=== PATIENT | female | born 1980 | race Caucasian/White ===

== ENCOUNTER 2019-08-23 18:12 | Emergency (ER) | payer SELFPAY ==
[2019-08-23] MEDS ORDERED: ACETAMINOPHEN 500 MG TAB ONE (19:42)
[2019-08-23] MEDS ORDERED: ONDANSETRON 4 MG (ODT) TAB ONE (19:42)
[2019-08-23 19:47] LABS: Urine Blood TRACE (NEG); Urine Glucose NEGATIVE (NEG); Urine Protein NEGATIVE (NEG); Urine Specific Gravity >1.030 (1.005-1.030); Urine pH 5.5 (5.0-7.0)
[2019-08-23 20:00] LABS: Barbiturates NEGATIVE (NEGATIVE); Benzodiazepines NEGATIVE (NEGATIVE); Cocaine NEGATIVE (NEGATIVE); METHAMPHETAM NEGATIVE (NEGATIVE); Methadone NEGATIVE (NEGATIVE); Opiates NEGATIVE (NEGATIVE); Phencyclidine NEGATIVE (NEGATIVE); THC Cannibis POSITIVE (NEGATIVE)
--- NOTE | 2019-08-23 20:03 | RAD REPORT ---
EXAM DESCRIPTION: RAD - Hip Right 2 View - 08/23/2019 7:56 pm CLINICAL HISTORY: Trauma Fall, right hip pain COMPARISON: No comparisons FINDINGS: No acute fracture or dislocation identified.
--- NOTE | 2019-08-23 20:08 | RAD REPORT ---
EXAM DESCRIPTION: RAD - Shoulder Right 2 View - 08/23/2019 7:56 pm CLINICAL HISTORY: trauma Fall, trauma, pain COMPARISON: No comparisons FINDINGS: No acute fracture or dislocation seen.
--- NOTE | 2019-08-23 20:08 | RAD REPORT ---
EXAM DESCRIPTION: CT - [id number] - 08/23/2019 7:55 pm CLINICAL HISTORY: Trauma, head and neck injury. Trauma COMPARISON: No comparisons TECHNIQUE: Axial 5 mm thick images of the head were obtained. Axial 2 mm thick images of the cervical spine were obtained with sagittal and coronal reconstruction images generated and reviewed. All CT scans are performed using dose optimization technique as appropriate and may include automated exposure control or mA/KV adjustment according to patient size. FINDINGS: CT HEAD WITHOUT CONTRAST: No acute hemorrhage, hydrocephalus or extra-axial collection is identified.No areas of brain edema or midline shift. The paranasal sinuses and mastoids are clear.The calvarium is intact. CT CERVICAL SPINE WITHOUT CONTRAST: No fracture or subluxation.No prevertebral soft tissues swelling is identified. IMPRESSION: No acute intracranial or cervical spine findings.
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
--- NOTE | 2019-08-23 20:41 | EDPHYS ---
Physician Documentation [facility] Name: Luis Adam Age: 39 yrs Sex: Female : 1980 Arrival Date: 08/23/2019 Time: 18:14 Bed 17 Private MD: ED Physician Tony Kirkland HPI: 08/22 19:40 This 39 yrs old Female presents to ER via Wheelchair with complaints of Fall mh7 Injury, Dizziness. 19:40 Details of fall: The patient fell from an upright position, while walking. Onset: The mh7 symptoms/episode began/occurred today. Associated injuries: The patient sustained injury to the head, contusion, pain, tenderness, neck injury, pain, tenderness, right shoulder, painful injury, right hip, painful injury. Severity of symptoms: At their worst the symptoms were moderate, earlier today, in the emergency department the symptoms have improved, moderately. Patient states that she slipped and fell on a wet floor at a store this afternoon. She is unsure if she had LOC but remembers events surrounding fall. She denies any symptoms prior to falling including headache, chest pain, SOB, abdominal pain, nausea, vomiting, dizziness, or weakness.. 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 - Social history:: Smoking status: Patient denies any tobacco usage or history of. Patient uses street drugs, marijuana, Patient/guardian denies using alcohol, tobacco products. ROS: 19:40 Constitutional: Negative for fever, chills, and weight loss, Eyes: Negative for injury, mh7 pain, redness, and discharge, ENT: Negative for injury, pain, and discharge, Cardiovascular: Negative for chest pain, palpitations, and edema, Respiratory: Negative for shortness of breath, cough, wheezing, and pleuritic chest pain, Abdomen/GI: Negative for abdominal pain, nausea, vomiting, diarrhea, and constipation, Back: Negative for injury and pain, : Negative for injury, bleeding, discharge, and swelling, Skin: Negative for injury, rash, and discoloration, Psych: Negative for depression, anxiety, suicide ideation, homicidal ideation, and hallucinations, Allergy/Immunology: Negative for hives, rash, and allergies, Endocrine: Negative for neck swelling, polydipsia, polyuria, polyphagia, and marked weight changes, Hematologic/Lymphatic: Negative for swollen nodes, abnormal bleeding, and unusual bruising. Exam: 19:40 Constitutional: This is a well developed, well nourished patient who is awake, alert, mh7 and in no acute distress. 19:40 Eyes: Pupils equal round and reactive to light, extra-ocular motions intact. Lids and lashes normal. Conjunctiva and sclera are non-icteric and not injected. Cornea within normal limits. Periorbital areas with no swelling, redness, or edema. ENT: Nares patent. No nasal discharge, no septal abnormalities noted. Tympanic membranes are normal and external auditory canals are clear. Oropharynx with no redness, swelling, or masses, exudates, or evidence of obstruction, uvula midline. Mucous membranes moist. 19:40 Chest/axilla: Normal chest wall appearance and motion. Nontender with no deformity. No lesions are appreciated. Cardiovascular: Regular rate and rhythm with a normal S1 and S2. No gallops, murmurs, or rubs. Normal PMI, no JVD. No pulse deficits. Respiratory: Lungs have equal breath sounds bilaterally, clear to auscultation and percussion. No rales, rhonchi or wheezes noted. No increased work of breathing, no retractions or nasal flaring. Abdomen/GI: Soft, non-tender, with normal bowel sounds. No distension or tympany. No guarding or rebound. No evidence of tenderness throughout. Back: No spinal tenderness. No costovertebral tenderness. Full range of motion. Skin: Warm, dry with normal turgor. Normal color with no rashes, no lesions, and no evidence of cellulitis. 19:40 Neuro: Awake and alert, GCS 15, oriented to person, place, time, and situation. Cranial nerves II-XII grossly intact. Motor strength 5/5 in all extremities. Sensory grossly intact. Cerebellar exam normal. Normal gait. Psych: Awake, alert, with orientation to person, place and time. Behavior, mood, and affect are within normal limits. 19:40 Head/face: Exam is negative for abrasion(s), uriarte signs, deformity, ecchymosis, erythema, laceration(s), raccoon eyes, Noted is tenderness, that is moderate, of the right temporal area. 19:40 Neck: External neck: tenderness, that is mild, of the left mid cervical area and left trapezius, C-spine: Thyroid: appears normal, Trachea: is midline with no obvious abnormalities, ROM/movement: is normal, Lymph nodes: no appreciated lymphadenopathy. 19:40 Musculoskeletal/extremity: Extremities: noted in the right shoulder: pain, tenderness, noted in the right hip: pain, tenderness, ROM: intact in all extremities, Circulation is intact in all extremities. Sensation intact. Compartment Syndrome exam of affected extremity: is normal. no numbness, no tingling, no sensation deficit, no palor, no weak pulses, Joints: the right shoulder and right hip displays tenderness, Weight bearing: able to fully bear weight, without difficulty, Tendon exam: specific tendon testing normal through active and passive range of motion Vital Signs: 18:24 BP 137 / 79; Pulse 72; Resp 18; Temp 98.4; Pulse Ox 99% ; Pain 9/10; ll1 20:00 BP 116 / 70; Pulse 71; Resp 18; Pulse Ox 97% on R/A; wh 21:00 BP 102 / 52; Pulse 60; Resp 18; Pulse Ox 96% on R/A; wh MDM: 19:15 Patient medically screened. [facility] 20:36 Differential diagnosis: abrasion, closed head injury, contusion, fracture. Data [facility] reviewed: vital signs, nurses notes, lab test result(s), urinalysis, urine drug screen, UPT: radiologic studies, CT scan, plain films. Data interpreted: Pulse oximetry: on room air is 99 %. Interpretation: normal. Counseling: I had a detailed discussion with the patient and/or guardian regarding: the historical points, exam findings, and any diagnostic results supporting the discharge/admit diagnosis, the presence of at least one elevated blood pressure reading (>120/80) during this emergency department visit, lab results, radiology results, the need for outpatient follow up, to return to the emergency department if symptoms worsen or persist or if there are any questions or concerns that arise at home. Response to treatment: the patient's symptoms have markedly improved after treatment. 08/22 19:16 Order name: UDS; Complete Time: 20:31 [facility] 08/22 19:39 Order name: Urine Dipstick--Ancillary (enter results); Complete Time: 20:31 [facility] 08/22 19:20 Order name: CT Head C Spine; Complete Time: 20:31 7 08/22 19:20 Order name: Shoulder Right (2 View) XRAY; Complete Time: 20:31 7 08/22 19:20 Order name: Hip Right 2 View XRAY; Complete Time: 20:31 [facility] 08/22 19:39 Order name: Urine --Ancillary (enter results); Complete Time: 20:31 [facility] 08/22 19:16 Order name: Urine Test (obtain specimen); Complete Time: 19:37 [facility] 08/22 19:20 Order name: Pelvis XRAY; Complete Time: 20:31 mh7 Administered Medications: 19:37 Drug: Ondansetron (Zofran) 4 mg Route: PO; 21:17 Follow up: Response: No adverse reaction; Nausea is decreased 19:37 Drug: Tylenol 1000 mg Route: PO; 21:17 Follow up: Response: No adverse reaction; Pain is decreased Disposition: 08/23/19 20:40 Discharged to Home. Impression: Fall-Mechanical, Head Contusion, Right Shoulder Contusion, Right Hip Contusion. - Condition is Stable. - Discharge Instructions: Contusion, [id number], Head Injury, Adult, [id number]. - Prescriptions for Zofran ODT 4 mg Oral tablet,disintegrating - place 1 tablet by TRANSLINGUAL route every 8 hours; 6 tablet. - Medication Reconciliation Form, Thank You Letter, Antibiotic Education, Prescription Opioid Use form. - Follow up: Private Physician; When: 1 - 2 days; Reason: Worsening of condition, Recheck today's complaints, Re-evaluation by your physician. Follow up: Jim Yanez MD; When: 1 - 2 days; Reason: Worsening of condition, Recheck today's complaints. - Problem is new. - Symptoms have improved. Signatures: Dispatcher [employer] EDMS Jarad Alonzo Lynsay, RN RN ll1 Tony Kirkland MD MD 7 Corrections: (The following items were deleted from the chart) 20:41 20:40 08/23/2019 20:40 Discharged to Home. Impression: Fall-Mechanical; Head Contusion; mh7 Right Shoulder Contusion; Right Hip Contusion. Condition is Stable. Forms are Medication Reconciliation Form, Thank You Letter, Antibiotic Education, Prescription Opioid Use. Follow up: Private Physician; When: 1 - 2 days; Reason: Worsening of condition, Recheck today's complaints, Re-evaluation by your physician. Problem is new. Symptoms have improved. mh7 21:17 20:41 08/23/2019 20:40 Discharged to Home. Impression: Fall-Mechanical; Head Contusion; wh Right Shoulder Contusion; Right Hip Contusion. Condition is Stable. Discharge Instructions: Contusion, [id number], Head Injury, Adult, [id number]. Prescriptions for Zofran ODT 4 mg Oral tablet,disintegrating - place 1 tablet by TRANSLINGUAL route every 8 hours; 6 tablet. and Forms are Medication Reconciliation Form, Thank You Letter, Antibiotic Education, Prescription Opioid Use. Follow up: Private Physician; When: 1 - 2 days; Reason: Worsening of condition, Recheck today's complaints, Re-evaluation by your physician. Follow up: Jim Yanez; When: 1 - 2 days; Reason: Worsening of condition, Recheck today's complaints. Problem is new. Symptoms have improved. mh7
--- NOTE | 2019-08-23 20:41 | ER ---
Nurse's Notes [facility] Name: Luis Adam Age: 39 yrs Sex: Female : 1980 Arrival Date: 08/23/2019 Time: 18:14 Bed 17 Private MD: Diagnosis: Fall-Mechanical;Head Contusion;Right Shoulder Contusion;Right Hip Contusion Presentation: 08/22 18:24 Chief complaint: Patient states: Slipped today at [facility] at 1340 on slippery ground. ll1 Reports right shoulder hitting the cart, and right hip pain since. Denies hitting her head, denies LOC, but reports confusion. + dizziness right away, nausea since. Coronavirus screen: Proceed with normal triage. Patient denies a cough. Patient denies shortness of breath or difficulty breathing. Patient denies measured and/or subjective temperature greater than 100.4F prior to today's visit. Patient denies travel on a cruise ship or to a country the [facility] currently lists as an affected area. Patient denies contact with known and/or suspected case of COVID-19. Ebola Screen: Patient denies travel to an Ebola-affected area in the 21 days before illness onset. Initial Sepsis Screen: Does the patient meet any 2 criteria? No. Patient's initial sepsis screen is negative. Risk Assessment: Do you want to hurt yourself or someone else? Patient reports no desire to harm self or others. Onset of symptoms was August 23, 2019. 18:24 Method Of Arrival: Wheelchair ll1 18:24 Acuity: NITHYA 3 ll1 19:15 Initial Sepsis Screen: Does the patient have a suspected source of infection? No. wh Patient's initial sepsis screen is negative. 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 - Social history:: Smoking status: Patient denies any tobacco usage or history of. Patient uses street drugs, marijuana, Patient/guardian denies using alcohol, tobacco products. Screenin:15 Abuse screen: Denies threats or abuse. Denies injuries from another. Nutritional wh screening: No deficits noted. Tuberculosis screening: No symptoms or risk factors identified. Fall Risk None identified. Assessment: 19:15 General: Appears in no apparent distress. Behavior is calm, cooperative, appropriate wh for age. Pain: Complains of pain in right hip and right shoulder and left trapezius and left mid cervical area and right temporal area Pain currently is 5 out of 10 on a pain scale. Quality of pain is described as aching, Pain began 4 hours ago. Neuro: Level of Consciousness is awake, alert, obeys commands, Oriented to person, place, time, situation, Appropriate for age Pipe Maker are equal bilaterally Moves all extremities. Gait is steady, Speech is normal, Facial symmetry appears normal. Neuro: Reports dizziness. Cardiovascular: Respiratory: Airway is patent Respiratory effort is even, unlabored, Respiratory pattern is regular, symmetrical, Breath sounds are clear bilaterally. GI: Abdomen is flat, non-distended. : No signs and/or symptoms were reported regarding the genitourinary system. EENT: No signs and/or symptoms were reported regarding the EENT system. Derm: Skin is intact, is healthy with good turgor, Skin is pink, warm \T\ dry. normal. Musculoskeletal: Circulation, motion, and sensation intact. 20:05 Reassessment: Patient appears in no apparent distress at this time. No changes from previously documented assessment. Patient and/or family updated on plan of care and expected duration. Pain level reassessed. Patient is alert, oriented x 3, equal unlabored respirations, skin warm/dry/pink. 21:10 Reassessment: Patient appears in no apparent distress at this time. No changes from previously documented assessment. Patient and/or family updated on plan of care and expected duration. Pain level reassessed. Patient is alert, oriented x 3, equal unlabored respirations, skin warm/dry/pink. Vital Signs: 18:24 BP 137 / 79; Pulse 72; Resp 18; Temp 98.4; Pulse Ox 99% ; Pain 9/10; ll1 20:00 BP 116 / 70; Pulse 71; Resp 18; Pulse Ox 97% on R/A; wh 21:00 BP 102 / 52; Pulse 60; Resp 18; Pulse Ox 96% on R/A; ED Course: 18:14 Patient arrived in ED. ag5 18:24 Arm band placed on Patient placed in an exam room, on a stretcher. 1 18:26 Triage completed. 1 18:59 Jarad Alonzo is Primary Nurse. 19:03 Tony Kirkland MD is Attending Physician. [facility] 19:15 Patient has correct armband on for positive identification. Bed in low position. Call light in reach. Side rails up X 1. Pulse ox on. NIBP on. 19:55 CT Head C Spine In Process Unspecified. EDMS 19:56 Shoulder Right (2 View) XRAY In Process Unspecified. EDMS 19:56 Hip Right 2 View XRAY In Process Unspecified. EDMS 19:56 Pelvis XRAY In Process Unspecified. EDMS 20:41 Jim Yanez MD is Referral Physician. [facility] 21:15 No provider procedures requiring assistance completed. Patient did not have IV access during this emergency room visit. Administered Medications: 19:37 Drug: Ondansetron (Zofran) 4 mg Route: PO; 21:17 Follow up: Response: No adverse reaction; Nausea is decreased 19:37 Drug: Tylenol 1000 mg Route: PO; 21:17 Follow up: Response: No adverse reaction; Pain is decreased Outcome: 20:40 Discharge ordered by . [facility] 21:16 Discharged to home ambulatory. 21:16 Condition: stable 21:16 Discharge instructions given to patient, Instructed on discharge instructions, follow up and referral plans. medication usage, POC Demonstrated understanding of instructions, follow-up care, medications, POC Prescriptions given X 1. 21:17 Patient left the ED. Signatures: Dispatcher [employer] EDTX Jarad Alonzo Mahendra Freeman ag5 Jason Medley, RN RN 1 Tony Kirkland MD MD [facility]
[2019-08-23 21:30] VITALS: TEMP 98.4
[2019-08-23 21:40] VITALS: BP 102/52; O2SAT 96
== END 2019-08-23 21:17 | disposition home or self-care (01) ==
LOC: ER 18:12
DX: S00.93XA Contusion of unspecified part of head, initial encounter (principal); S40.011A Contusion of right shoulder, initial encounter; S70.01XA Contusion of right hip, initial encounter; W01.0XXA Fall on same level from slipping, tripping and stumbling without subsequent striking against object, initial encounter; Y93.01 Activity, walking, marching and hiking; Y92.512 Supermarket, store or market as the place of occurrence of the external cause; E78.00 Pure hypercholesterolemia, unspecified
CPT/HCPCS: 70450; 72125; 72170; 80307; 81003; 81025; 99284